=== PATIENT | male | born 1990 | race Caucasian/White ===

== ENCOUNTER 2016-09-14 04:22 | Emergency (ER) | payer SELFPAY ==
[~2016-09-14] VITALS: Ht 177.8 cm; Wt 99.5 kg
[~2016-09-14 04:22] MED LIST: AMO500 PO; IBUP-1542 PO; LORA1TAB PO
[2016-09-14 04:27] VITALS: Ht 177.8 cm; Wt 99.5 kg
--- NOTE | 2016-09-14 04:40 | ERD ---
ER Documentation Chief Complaint Date/Time DATE: 09/14/16 TIME: 04:38 Chief Complaint sore throat, cough x 5 days HPI This is a 25-year-old male presents to the emergency room with a chief complaint of sore throat, nasal congestion, dry cough. The patient states she has had symptoms for 5 days. He has been taking Mucinex with minimal relief. The patient came to the ER today for evaluation. ROS All systems reviewed and are negative except as per history of present illness. 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 Amoxicillin* (Amoxicillin*) 500 Mg Cap, 500 MG PO TID for 10 Days, CAP Prov:FRANSICO SELLERS [employer]ESS[employer]ISTORY 02/16/16 Ibuprofen* (Motrin*) 600 Mg Tab, 600 MG PO Q6, #30 TAB Prov:ALTAGRACIA PADGETT 12/09/15 Lorazepam* (Lorazepam*) 1 Mg Tablet, 1 MG PO Q8H Y for ANXIETY, #10 Prov:SHENG YO 01/25/15 Allergies Allergies: Coded Allergies: No Known Drug Allergies (Verified Allergy, Mild, 01/24/15) PMhx/Soc History of Surgery: No Anesthesia Reaction: No Hx Neurological Disorder: No Hx Respiratory Disorders: No Hx Cardiac Disorders: No Hx Psychiatric Problems: No Hx Miscellaneous Medical Probl: No Hx Alcohol Use: No Hx Substance Use: No Hx Tobacco Use: No Physical Exam Vitals Vital Signs Date Time Temp Pulse Resp B/P Pulse Ox O2 Delivery O2 Flow Rate FiO2 09/14/16 04:27 98.4 87 20 157/80 99 Physical Exam Const: No acute distress Head: [Atraumatic] Eyes: [Normal Conjunctiva] ENT: Bilateral nasal congestion, pharyngeal erythema, no visible exudate. [Normal External Ears, Nose and Mouth.] Neck: [Full range of motion. No meningismus.] Resp: [Clear to auscultation bilaterally] Cardio: [Regular rate and rhythm, no murmurs] Abd: [Soft, non tender, non distended. Normal bowel sounds] Skin: [No petechiae or rashes] Back: [No midline or flank tenderness] Ext: [No cyanosis, or edema] Neur: [Awake and alert] Psych: [Normal Mood and Affect] Procedures/MDM This 25-year-old male presents to the emergency room for evaluation of nasal congestion, and cough. The patient did have congestion, pharyngeal erythema and symptoms consistent with a viral URI. The patient was given Robitussin here in the emergency room and will be discharged home with a prescription for Robitussin. Patient presents with straightforward URI symptoms. Clinical exam is not consistent with pneumonia, sepsis or significant bacterial disease. Patient is well hydrated, non-toxic and appropriate for outpatient, supportive care. Departure Diagnosis: Primary Impression: Viral syndrome Condition: Stable CAROLSJUSTINE AGUILAR Sep 14, 2016 04:40
[2016-09-14] MEDS ORDERED: UDROBDM PO (04:41)
[2016-09-14] MEDS ORDERED: GUAIFENESIN/DM 5ML CUP PO ONE (05:00)
== END 2016-09-14 04:57 | disposition home or self-care (01) ==
LOC: E/R 04:22
DX: B34.9 Viral infection, unspecified (principal)
CPT/HCPCS: 99283

== ENCOUNTER 2018-01-31 02:06 | Emergency (ER) | END 2018-01-31 06:02 | disposition home or self-care (01) ==

== ENCOUNTER 2018-03-13 18:40 | Emergency (ER) | END 2018-03-13 20:37 | disposition home or self-care (01) ==

== ENCOUNTER 2019-03-04 20:39 | Emergency (ER) | payer SELFPAY ==
[~2019-03-04] VITALS: Ht 170.2 cm; Wt 100.2 kg
[~2019-03-04 20:39] MED LIST changes: +ACET500C5 PO; -AMO500 PO; +AMOX500C2 PO; +GUAI-111 PO; +GUAI5SYR2 PO; +IBUP800T48 PO
[2019-03-04 21:08] VITALS: Ht 170.2 cm; Wt 100.2 kg
[2019-03-04] MEDS ORDERED: CEFTRIAXONE 250 MG INJ IM ONE (23:00)
[2019-03-04] MEDS ORDERED: AZITHROMYCIN 500 MG TAB PO ONE (23:00)
[2019-03-05 00:09] VITALS: BP 157/93; PULSE 85; RESP 16
--- NOTE | 2019-03-05 04:02 | ERD ---
ER Documentation Chief Complaint Chief Complaint genital pain x 4 days. denies dysuria or discharge HPI 28-year-old male presents to the emergency department complaining of penile pain and burning in his testicles intermittent for the past 4 days. He states symptoms began after having sexual intercourse with a new sexual partner. He is unsure of their status of sexually transmitted infections. Symptoms are mild in severity. He denies any penile discharge, fevers, chills, testicular trauma, or other symptoms at this time. ROS All systems reviewed and are negative except as per history of present illness. Medications Home Meds Active Scripts Ibuprofen* (Motrin*) 800 Mg Tab, 800 MG PO Q6H PRN for PAIN AND OR ELEVATED TEMP, #30 TAB Prov:SHAKIRA JAMES MD 03/13/18 Guaifenesin/Pseudoephedrne HCl (Mucinex D ER 600-60 mg Tablet) 1 Each Tab.er.12h, 1 EACH PO BID for 7 Days, #14 TAB Prov:WARREN,FREDY 01/31/18 Acetaminophen* (Tylophen*) 500 Mg Capsule, 1 CAP PO Q6H PRN for PAIN AND OR ELEVATED TEMP, #20 CAP Prov:WARREN,FREDY 01/31/18 Ibuprofen* (Motrin*) 600 Mg Tab, 600 MG PO Q6, #30 TAB Prov:WARREN,FREDY 01/31/18 Guaifenesin-Dextromethorphan* (Robitussin* DM) 100MG/10MG/5ML Syrup, 10 ML PO Q6H PRN for COUGH for 10 Days, #30 ML Prov:JUSTINE GONZALEZ DO 09/14/16 Ibuprofen* (Motrin*) 600 Mg Tab, 600 MG PO Q6H PRN for PAIN AND OR ELEVATED TEMP, #30 TAB Prov:FRANSICO SELLERS [employer] 02/16/16 Amoxicillin* (Amoxicillin*) 500 Mg Cap, 500 MG PO TID for 10 Days, CAP Prov:FRANSICO SELLERS [employer] 02/16/16 Ibuprofen* (Motrin*) 600 Mg Tab, 600 MG PO Q6, #30 TAB Prov:ALTAGRACIA PADGETT 12/09/15 Lorazepam* (Lorazepam*) 1 Mg Tablet, 1 MG PO Q8H PRN for ANXIETY, #10 Prov:SHENG YO 01/25/15 Allergies Allergies: Coded Allergies: No Known Drug Allergies (Verified Allergy, Mild, 01/24/15) PMhx/Soc Medical and Surgical Hx: pt denies Medical Hx, pt denies Surgical Hx History of Surgery: No Anesthesia Reaction: No Hx Neurological Disorder: No Hx Respiratory Disorders: No Hx Cardiac Disorders: No Hx Psychiatric Problems: No Hx Miscellaneous Medical Probl: No Hx Alcohol Use: Yes (Daily) Hx Substance Use: No Hx Tobacco Use: No Smoking Status: Never smoker FmHx Family History: No diabetes Physical Exam Vitals Vital Signs Date Temp Pulse Resp B/P (MAP) Pulse Ox O2 O2 Flow FiO2 Time Delivery Rate 03/05/19 97.7 85 16 157/93 98 Room Air 00:09 (114) 03/04/19 99.0 85 18 164/99 100 21:08 (120) Physical Exam Const: No acute distress Head: Atraumatic Eyes: Normal Conjunctiva ENT: Normal External Ears, Nose and Mouth. Neck: Full range of motion. No meningismus. Resp: Clear to auscultation bilaterally Cardio: Regular rate and rhythm, no murmurs Abd: Soft, non tender, non distended. Normal bowel sounds Exam: Scrotum: Normal Hernia: None Testes/Epid: Non-tender w/ normal lie Cremaster: Reflex intact Lymph: No inguinal lymphadenopathy Discharge: None Skin: No petechiae or rashes Back: No midline or flank tenderness Ext: No cyanosis, or edema Neur: Awake and alert Psych: Normal Mood and Affect Results 24 hrs Laboratory Tests Test 03/04/19 23:11 Bedside Urine pH (LAB) 6.0 Bedside Urine Protein (LAB) Negative Bedside Urine Glucose (UA) Negative Bedside Urine Ketones (LAB) Negative Bedside Urine Blood Negative Bedside Urine Nitrite (LAB) Negative Bedside Urine Leukocyte Esterase (L Negative Current Medications Medications Dose Sig/Catarino Start Time Status Last (Trade) Ordered Route PRN Stop Time Admin Dose Reason Admin Ceftriaxone 250 mg ONCE ONCE 03/04/19 DC 03/04/19 Sodium IM 23:00 23:00 (Rocephin) 03/04/19 23:01 1,000 mg ONCE ONCE 03/04/19 DC 03/04/19 Azithromycin PO 23:00 23:00 (Zithromax) 03/04/19 23:01 Procedures/MDM 28-year-old male presents to the emergency department complaining of burning in his testicles and penile pain after sexual intercourse with a new partner. Chlamydia and gonorrhea tests were sent and patient was treated empirically for chlamydia/gonorrhea. No evidence to suggest acute surgical abdomen, testicular torsion, sepsis, or other emergencies. Patient will be discharged home in stable condition and advised to follow-up with his primary care physician and urologist. All questions answered at discharge. Patient agreed with the diagnosis, plan, need for follow-up, return precautions. Patient's blood pressure was elevated (>120/80) but appears stable without evidence of hyperte nsion emergency or urgency. The patient is to follow-up and pursue outpatient monitoring and therapy with their primary care physician within 1 week and return immediately if they have any new, worsening, or concerning symptoms. Departure Diagnosis: Primary Impression: Urethritis Condition: Fair Patient Instructions: What Are Sexually Transmitted Diseases (STDs)? Referrals: [facility] YOU HAVE RECEIVED A MEDICAL SCREENING EXAM AND THE RESULTS INDICATE THAT YOU DO NOT HAVE A CONDITION THAT REQUIRES URGENT TREATMENT IN THE EMERGENCY DEPARTMENT. FURTHER EVALUATION AND TREATMENT OF YOUR CONDITION CAN WAIT UNTIL YOU ARE SEEN IN YOUR DOCTORS OFFICE WITHIN THE NEXT 1-2 DAYS. IT IS YOUR RESPONSIBILITY TO MAKE AN APPOINTMENT FOR FOLOW-UP CARE. IF YOU HAVE A PRIMARY DOCTOR --you should call your primary doctor and schedule an appointment IF YOU DO NOT HAVE A PRIMARY DOCTOR YOU CAN CALL OUR PHYSICIAN REFERRAL HOTLINE AT IF YOU CAN NOT AFFORD TO SEE A PHYSICIAN YOU CAN CHOSE FROM THE FOLLOWING [facility] [address] [facility] [address] [facility] [facility] [address] [facility] [address] [facility] [address] [facility]. [facility]. [address] Additional Instructions: Call your primary care doctor TOMORROW for an appointment during the next 1-2 days.See the doctor sooner or return here if your condition worsens before your appointment time. SHENG MARRUFO PA-C Mar 05, 2019 04:02
== END 2019-03-05 00:10 | disposition home or self-care (01) ==
LOC: FTE 20:39
DX: N34.2 Other urethritis (principal)
CPT/HCPCS: 81003; 87591; 96372; 99284; J0696